=== PATIENT | female | born 1980 | race Caucasian/White ===

== ENCOUNTER 2018-06-06 12:19 | Emergency (ER) | payer OTHER, BC ==
[~2018-06-06] VITALS: Ht 172.7 cm; Wt 66.3 kg
[~2018-06-06 12:19] MED LIST: DOCU-131 PO; IBUP-1222 PO; OXYC-302 PO; PNV1TABL47 PO
[2018-06-06 12:21] VITALS: BP 119/85
== END 2018-06-06 13:19 | disposition home or self-care (01) ==
LOC: ED 13:00
DX: S16.1XXA Strain of muscle, fascia and tendon at neck level, initial encounter (principal); V43.51XA Car driver injured in collision with sport utility vehicle in traffic accident, initial encounter; Y93.89 Activity, other specified; Y92.89 Other specified places as the place of occurrence of the external cause; Y99.8 Other external cause status
CPT/HCPCS: 99283